=== PATIENT | male | born 1995 | race Caucasian/White ===

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

== ENCOUNTER 2019-06-10 17:44 | Emergency (ER) | payer BC, MEDICAID ==
[2019-06-10 17:58] VITALS: BP 107/72
== END 2019-06-10 18:05 | disposition left against medical advice (07) ==
LOC: ED 17:44
DX: F32.9 Major depressive disorder, single episode, unspecified (principal); Z53.21 Procedure and treatment not carried out due to patient leaving prior to being seen by health care provider
CPT/HCPCS: 99282